=== PATIENT | female | born 1975 | race Caucasian/White ===

== ENCOUNTER → 2018-11-04 10:04 | Outpatient (CLI) | payer OTHER, SELFPAY ==
[2013-05-06 17:37] VITALS: BMI 27.9
--- NOTE | 2018-11-04 10:11 | RAD_ITS ---
STUDY: X-RAY CHEST REASON FOR EXAM: Female, 43 years old. inflammatory spondylopathy TECHNIQUE: Single AP portable view of the chest. COMPARISON: None. FINDINGS: The lungs are clear and expanded. There is no demonstrated pleural abnormality. Normal size heart. Normal mediastinum and amanda. Normal visualized pulmonary arteries. Normal visualized aortic arch and descending thoracic aorta. Normal visualized thoracic spine. Normal visualized ribs, clavicles, and shoulders. There is no demonstrated abnormality of the visualized soft tissue structures of the upper abdomen. RAD/Chest PA and Lateral IMPRESSION: Normal x-ray examination of the chest. Electronically Signed: Francesco Manzo MD at 15:00 EDT , Service support ,
--- NOTE | 2018-11-04 10:12 | RAD_ITS ---
STUDY: X-RAY - PELVIS REASON FOR EXAM: Female, 43 years old. Inflammatory spondyloarthropathy TECHNIQUE: One view of the pelvis was obtained. COMPARISON: None. FINDINGS: There is a non-specific bowel gas pattern. Normal visualized soft tissue structures. Normal bilateral iliac wings, sacroiliac joints and visualized sacrum. Normal visualized bilateral superior and inferior pubic rami. Normal pubic symphysis. Normal ischial tuberosities. Normal visualized right femoral head. Normal right acetabulum. Normal right hip joint. Normal visualized left femoral head. Normal left acetabulum. Normal left hip joint. RAD/Pelvis 1 or 2 Views IMPRESSION: Normal x-ray examination of the pelvis. Electronically Signed: Bronson Banuelos DO at 9:31 EDT Tel , Service support ,
[2018-11-04 12:58] LABS: Erythrocyte Sedimentation Rate 6 mm/hr (0-20)
[2018-11-04 13:01] LABS: Absolute Lymphocyte Count 1.39 X10^3/ul (0.83-4.51); Absolute Neutrophil Count 2.7 X10^3/uL (2.0-7.7); Basophil# 0.02 X10^3/uL; Basophil% 0.5 % (0-1); Eosinophil# 0.05 X10^3/uL; Eosinophils% 1.1 % (0-5); Hematocrit 41.2 % (37-47); Hemoglobin 14.1 g/dl (12.0-15.0); Lymphocyte # 1.39 X10^3/ul (4.0); Lymphocyte % 31.5 % (19-41); Mean Corp Hgb Conc 34.2 g/gl (32-36); Mean Corpuscular Hgb 31.6 pg (27.0-32.0); Mean Corpuscular Volume 92.4 fL (81-99); Mean Platelet Vol. 10.5 fl (6.2-12.0); Monocyte# 0.28 X10^3/uL; Monocyte% 6.3 % (0-10); Neutrophil # 2.66 X10^3/uL (2.7-7.7); Neutrophil % 60.4 % (47-70); Platelet Count 294 K/mm3 (150-450); RBC Distribution Width CV 12.5 % (11.6-14.6); RBC Distribution Width SD 42.1 fl (35.1-43.9); Red Blood Count 4.46 M/mm3 (4.2-5.4); White Blood Count 4.4 K/mm3 (4.4-11.0)
[2018-11-04 13:04] LABS: POSITIVE COUNT NO; POSITIVE DIFFERENTIAL NO; POSITIVE MORPHOLOGY NO
[2018-11-04 13:13] LABS: ALB/GLOB Ratio 1.1 RATIO (0.9-2.4); AST(SGOT) 13 U/L (15-37); Alanine Aminotransfer ALT/SGPT 21 U/L (13-56); Albumin, Serum 4.1 g/dL (3.2-5.0); Alkaline Phosphatase 84 U/L (45-117); Anion Gap 6 (5-15); BUN 14 mg/dL (7-18); Calcium,Total 9.2 mg/dL (8.5-10.1); Chloride 103 mmol/L (98-107); Creatinine, Serum 1.08 mg/dL (0.55-1.02); EST Glomerular Filtration Rate 59 mL/min (>60); Est Glom Filt Rate - Afr Amer 72 mL/min (>60); Globulin 3.8 g/dL (2.2-4.2); Glucose 85 mg/dL (74-106); Potassium 3.7 mmol/L (3.5-5.1); Protein, Total 7.9 g/dL (6.4-8.2); Rheumatoid Factor < 10.0 IU/mL (<15); Sodium Level 140 mmol/L (136-145)
[2018-11-05 16:42] LABS: ANTINUCLEAR ANTIBODIES DIRECT Negative (Negative)
[2018-11-10 20:07] LABS: HEPATITIS B SURFACE AG Negative (Negative); QNTFERON TB Mitogen Value > 10.00 IU/mL (.); QNTFERON TB Nil Value 0.02 IU/mL (.); QNTFERON TB1+ Ag Value 0.02 IU/mL (.); QNTFERON TB2+ Ag Value 0.03 IU/mL (.)
[2018-11-11 12:24] LABS: CCP IgG Antibodies 5 units (0-19); HLA B27 Negative (.); Hep B Surface Antibodies Non Reactive (.); Hep C Antibodies <0.1 s/co ratio (0.0-0.9); Hepatitis B Core AB IgM Negative (Negative); QNTIFERON TB Positive Criteria Negative (Negative)
== END ==
PROVIDERS: Family Provider Family Medicine; PCP Family Medicine; Referring Provider Internal Medicine Rheumatology; Visit Provider Internal Medicine Rheumatology
DX: M46.90 Unspecified inflammatory spondylopathy, site unspecified (principal); K90.0 Celiac disease; G47.33 Obstructive sleep apnea (adult) (pediatric); L70.9 Acne, unspecified
CPT/HCPCS: 36415; 71046; 72170; 80053; 81374; 85025; 85652; 86038; 86140; 86200; 86431; 86480; 86705; 86706; 86803; 87340

== ENCOUNTER → 2020-03-14 08:18 | Outpatient (CLI) | payer OTHER, SELFPAY ==
--- NOTE | 2020-03-14 08:24 | US_ITS ---
STUDY: ABDOMINAL ULTRASOUND - RIGHT UPPER QUADRANT REASON FOR VISIT: Female, 44 years old ELEVATED LFTS TECHNIQUE: Ultrasound evaluation of the right upper quadrant was performed with real-time and static trotter-scale imaging. TECHNICAL QUALITY: Adequate. COMPARISON: None. FINDINGS: Liver: The liver measures 13.8 cm. There is normal echogenicity of the liver. The bile ducts are within normal limits. There is hepatic color flow. The direction of portal flow is hepatopetal. There is no demonstrated mass lesion. Gallbladder: Normal distended gallbladder. The gallbladder wall measures 2 mm. There is a negative sonographic Hudson''s sign. There is no pericholecystic fluid. There are no gallstones. Common Bile Duct (C.B.D.): The common bile duct measures 4 mm. Pancreas: Normal size of the head, body and tail of the pancreas. There is normal echogenicity of the pancreas. There is no demonstrated pancreatic mass or cyst. Right Kidney: Normal size of the right kidney. The right kidney measures 8.7 cm. Normal renal cortex. The right cortex measures 1.1 cm. There is no demonstrated renal mass or cyst. There is no right hydronephrosis. US/Liver IMPRESSION: Normal right upper quadrant ultrasound examination. Electronically Signed: Beto Ashraf MD at 9:49 EDT Tel , Service support ,
== END ==
PROVIDERS: PCP Family Medicine; Referring Provider Internal Medicine Rheumatology; Visit Provider Internal Medicine Rheumatology
DX: M46.90 Unspecified inflammatory spondylopathy, site unspecified (principal); Z79.899 Other long term (current) drug therapy; K90.0 Celiac disease; F32.89 Other specified depressive episodes; G47.33 Obstructive sleep apnea (adult) (pediatric); L70.9 Acne, unspecified
CPT/HCPCS: 76705